=== PATIENT | female | born 2000 | race Asian ===

== ENCOUNTER 2025-07-19 08:33 | Emergency (ER) | payer BC ==
[~2025-07-19] VITALS: Ht 162.6 cm; Wt 49.9 kg
[2025-07-19 08:44] VITALS: BP 149/71
[2025-07-19] MEDS ORDERED: IBUPROFEN 200 MG TABLET ONE (09:22)
[2025-07-19] MEDS ORDERED: ACETAMINOPHEN 500 MG TABLET ONE (09:22)
[2025-07-19] MEDS: IBUPROFEN 200 MG TABLET PO ONE (09:25)
[2025-07-19] MEDS: ACETAMINOPHEN 500 MG TABLET PO ONE (09:25)
[2025-07-19 10:07] VITALS: BP 138/73; TEMP 97.8; O2SAT 97
== END 2025-07-19 10:08 | disposition home or self-care (01) ==
LOC: ER 08:33
DX: T14.8XXA Other injury of unspecified body region, initial encounter (principal); R51.9 Headache, unspecified; M54.2 Cervicalgia; V43.62XA Car passenger injured in collision with other type car in traffic accident, initial encounter; Y93.89 Activity, other specified; Y92.488 Other paved roadways as the place of occurrence of the external cause; Y99.8 Other external cause status
CPT/HCPCS: A4606; A4663; A9150